=== PATIENT | male | born 1940 | race Caucasian/White ===

== ENCOUNTER → 2016-12-12 | Outpatient (CLI) | payer MEDICARE ==
[~2016-12-12] MED LIST: ALLO100 PO; ALLO100T PO; AMLO5TAB2 PO; ASPI1TAB91 PO; ASPI81 PO; CALC600T10 PO; DIPH2.5T14 PO; LEVO125T3 PO; LEVO137T2 PO; LISI10TA3 PO; MIDO5 PO; OMEP20TA PO; TAMS0.4C4 PO; TAMS0.4C67 PO; VIAG25TA PO; VITA20002 PO; ZOLP5TAB3 PO
== END ==
LOC: CLAB 11:58
PROVIDERS: ATTEND Specialist
DX: B18.2 Chronic viral hepatitis C (principal); D64.9 Anemia, unspecified; I10 Essential (primary) hypertension; N40.1 Benign prostatic hyperplasia with lower urinary tract symptoms; R79.9 Abnormal finding of blood chemistry, unspecified
CPT/HCPCS: 36415; 82140

== ENCOUNTER 2017-02-04 00:05 | Emergency (ER) | payer MEDICARE ==
[~2017-02-04] VITALS: Ht 172.7 cm; Wt 98.7 kg
[~2017-02-04 00:05] MED LIST changes: -ALLO100T PO; -AMLO5TAB2 PO; -ASPI1TAB91 PO; -CALC600T10 PO; -DIPH2.5T14 PO; -LEVO137T2 PO; -LISI10TA3 PO; -TAMS0.4C4 PO; -VIAG25TA PO; -ZOLP5TAB3 PO
[2017-02-04 00:14] VITALS: BP 151/88; PULSE 79; RESP 16; TEMP 98.3; O2SAT 93
[2017-02-04] MEDS ORDERED: VIAG25TA PO (00:53)
[2017-02-04] MEDS ORDERED: DIPH2.5T14 PO (00:53)
[2017-02-04] MEDS ORDERED: CALC600T10 PO (00:53)
[2017-02-04] MEDS ORDERED: ALLO100T PO (00:53)
[2017-02-04] MEDS ORDERED: AMLO5TAB2 PO (00:53)
[2017-02-04] MEDS ORDERED: ZOLP5TAB3 PO (00:53)
[2017-02-04] MEDS ORDERED: LISI10TA3 PO (00:53)
[2017-02-04] MEDS ORDERED: LEVO137T2 PO (00:53)
[2017-02-04] MEDS ORDERED: ASPI1TAB91 PO (00:53)
[2017-02-04] MEDS ORDERED: TAMS0.4C4 PO (00:53)
--- NOTE | 2017-02-04 01:34 | PD ---
HPI Chief Complaint: Fall Time Seen by Provider: 01:31 Travel History International Travel<30 days: No Contact w/Intl Traveler<30days: No Traveled to known affect area: No History of Present Illness HPI The patient is a 76-year-old male that fell at 31 tonight and complains of pain slightly to the right of the sternum. The patient thinks he hit on a shoulder but the force was transmitted to the right of the sternum. He has had a coronary bypass graft. There was no loss of consciousness and the patient denies any shortness of breath or hemoptysis. 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 PFSH Past Medical History Anemia: Yes (WHILE ON INTERFERON) Arthritis: Yes Blood Disorders: No Anxiety: No Depression: No Cancer: No Cardiovascular Problems: Yes High Cholesterol: Yes Chemotherapy: Yes (TX FOR HEPATITIS C) Chest Pain: Yes Congestive Heart Failure: Yes Coronary Artery Disease: Yes Diabetes: No Diminished Hearing: No Endocrine: Yes Gastrointestinal Disorders: Yes (HEP C, STONES IN GALLBLADDER,GERD) GERD: Yes Genitourinary: Yes Hepatitis: Yes ( HEPATITIS C) Hiatal Hernia: No Hypertension: Yes Immune Disorder: No Medical other: Yes (HIGH CHOLESTEROL, CIRRHOSIS,GOUT) Musculoskeletal: Yes (MID BACK DISCOMFORT INTERMITTENTLY) Neurologic: No Psychiatric: No Reproductive: No Respiratory: No Myocardial Infarction: No Thyroid Disease: Yes (RADIOACTIVE IODINE TO DESTROY THYROID) Past Surgical History Abdominal Surgery: Yes (cholecystectomy jul 2014) AICD: No Body Medical Devices: STERNAL WIRES Cardiac Surgery: Yes (CABG X4 2009) Cholecystectomy: Yes Coronary Artery Bypass Graft: Yes (X 4) Ear Surgery: No Endocrine Surgery: No Eye Surgery: No Genitourinary Surgery: Yes (VASECTOMY 1974) Gynecologic Surgery: No Joint Replacement: No Oral Surgery: Yes (WISDOM TEETH REMOVED) Pacemaker: No Thoracic Surgery: No Other Surgery: Yes Social History Alcohol Use: No Tobacco Use: No Substance Use: No Allergies-Medications (Allergen,Severity, Reaction): Coded Allergies: Fish Oil (Verified Allergy, Mild, RASH, 02/04/17) Reported Meds & Prescriptions Reported Meds & Active Scripts Active Reported Aspirin Adult Low Strength (Aspirin) 81 Mg Tabdr 81 Mg PO DAILY Viagra (Sildenafil Citrate) 25 Mg Tab 25 Mg PO DAILY PRN Diphenoxylate-Atropine 2.5-0.025 Mg Tab 1 Tab PO Q6H PRN Zolpidem (Zolpidem Tartrate) 5 Mg Tab 5 Mg PO HS PRN Calcium + D3 (Calcium Carbonate-Cholecalciferol) 600-200 Mg-Unit Tab 1 Tab PO BID Lisinopril 10 Mg Tab 10 Mg PO BID Amlodipine (Amlodipine Besylate) 5 Mg Tab 5 Mg PO DAILY Tamsulosin (Tamsulosin HCl) 0.4 Mg Cap 0.4 Mg PO HS Allopurinol 100 Mg Tab 100 Mg PO DAILY Levothyroxine (Levothyroxine Sodium) 137 Mcg Tab 137 Mcg PO DAILY Review of Systems Except as stated in HPI: all other systems reviewed are Neg Physical Exam Narrative GENERAL: Well-nourished, well-developed patient in slight apparent distress with his right anterior chest wall pain. His vital signs are normal except for blood pressure 131/88. SKIN: Warm and dry. HEAD: Normocephalic. EYES: No scleral icterus. No injection or drainage. NECK: Supple, trachea midline. No JVD or lymphadenopathy. The left parotid gland is extremely hard and enlarged and irregular. CARDIOVASCULAR: Regular rate and rhythm without murmurs, gallops, or rubs. RESPIRATORY: Breath sounds equal bilaterally. No accessory muscle use. Lungs clear to auscultation bilaterally. GASTROINTESTINAL: Abdomen soft, non-tender, nondistended. MUSCULOSKELETAL: No cyanosis, or edema. BACK: Nontender without obvious deformity. No CVA tenderness. Data Data Last Documented VS Vital Signs Date Time Temp Pulse Resp B/P Pulse Ox O2 Delivery O2 Flow Rate FiO2 02/04/17 00:40 Room Air 02/04/17 00:14 98.3 79 16 151/88 93 Orders Chest, Pa & Lat (02/04/17 01:34) [facility] Medical Decision Making Medical Screen Exam Complete: Yes Emergency Medical Condition: Yes Medical Record Reviewed: Yes Interpretation(s) The chest x-ray shows no acute disease. Differential Diagnosis Pneumothorax, fractured ribs, pulmonary contusion, fracture sternum Narrative Course The patient has a history of hepatitis C and does not want anything containing Tylenol. He does not want any pain medications at all. Impression: Chest wall contusion Diagnosis Primary Impression: Chest wall contusion Additional Instructions: Cough and deep breathe. This is all your lungs clean them cells out and if you don't expand her lungs and cough you are a set up for pneumonia. Follow-up with your primary care physician next week. Med/Other Pt SpecificInfo: No Change to Meds Disposition: 01 DISCHARGE HOME Condition: Stable Levi Goetz MD Feb 04, 2017 01:34
--- NOTE | 2017-02-04 02:24 | RADHPO ---
EXAM DATE/TIME: 02/04/2017 02:02 [facility] COMPARISON: No previous studies available for comparison. INDICATIONS : Bilateral chest pain post fall. MEDICAL HISTORY : Congestive heart failure. Heart murmur SURGICAL HISTORY : CABG. ENCOUNTER: Initial ACUITY: 1 day PAIN SCORE: 8/10 LOCATION: Bilateral chest FINDINGS: PA and lateral views of the chest demonstrate the lungs to be symmetrically aerated without evidence of mass, infiltrate or effusion. Elevation of the right hemidiaphragm. The cardiomediastinal contours are unremarkable. Osseous structures are intact. Median sternotomy wires. CONCLUSION: No acute disease. Jimbo Stern Jr., MD on February 04, 2017 at 2:22 Board Certified Radiologist. This report was verified electronically.
[2017-02-04 02:39] VITALS: BP 144/89
== END 2017-02-04 02:48 | disposition home or self-care (01) ==
LOC: PHED 00:05
DX: S20.219A Contusion of unspecified front wall of thorax, initial encounter (principal); W19.XXXA Unspecified fall, initial encounter
CPT/HCPCS: 71020; 99284

== ENCOUNTER 2017-08-25 16:15 | Emergency (ER) | payer MEDICARE ==
[~2017-08-25] VITALS: Ht 175.3 cm; Wt 95.0 kg
[~2017-08-25 16:15] MED LIST changes: -ALLO100 PO; +ALLO100T PO; +AMLO5TAB2 PO; +ASPI1TAB91 PO; -ASPI81 PO; +CALC600T10 PO; +DIPH2.5T14 PO; -LEVO125T3 PO; +LEVO137T2 PO; +LISI10TA3 PO; -MIDO5 PO; -OMEP20TA PO; +TAMS0.4C4 PO; -TAMS0.4C67 PO; +VIAG25TA PO; -VITA20002 PO; +ZOLP5TAB3 PO
[2017-08-25 16:17] VITALS: BP 133/68; PULSE 102; RESP 14; TEMP 100.6; O2SAT 93
[2017-08-25] MEDS ORDERED: CEFEPIME INJ 2,000 MG in SODIUM CHLORIDE 0.9% INJ 100 ML IV STA ×2 (17:10→18:16)
[2017-08-25] MEDS ORDERED: SODIUM CHLOR 0.9% 1000 ML INJ 1,000 ML IV ONE (17:15)
[2017-08-25] MEDS ORDERED: ACETAMINOPHEN 325 MG TAB PO ONE (17:15)
[2017-08-25 17:25] VITALS: BP 138/68; PULSE 93; RESP 16; O2SAT 96
[2017-08-25] MEDS ORDERED: CALC1TAB37 PO (17:38)
--- NOTE | 2017-08-25 17:38 | RADRPT ---
EXAM DATE/TIME: 08/25/2017 17:18 [facility] COMPARISON: CHEST SINGLE AP, August 19, 2014, 5:10. INDICATIONS : Fever. MEDICAL HISTORY : Congestive heart failure. SURGICAL HISTORY : 4 way bypass surgery. ENCOUNTER: Initial ACUITY: 1 day PAIN SCORE: 0/10 LOCATION: Bilateral chest FINDINGS: The cardiac silhouette is normal in transverse diameter. Median sternotomy wires are present. There i s elevation of the right hemidiaphragm. The lungs are free of acute parenchymal opacity. No effusions are identified. CONCLUSION: 1. No acute cardiopulmonary disease. Hakan Chu MD on August 25, 2017 at 17:36 Board Certified Radiologist. This report was verified electronically.
[2017-08-25] MEDS ORDERED: [UNRECOGNIZED DRUG - CODE] (17:42)
[2017-08-25] MEDS ORDERED: PEGF6P SQ (17:42)
[2017-08-25] MEDS ORDERED: RITU500P (17:42)
[2017-08-25 18:00] LABS: AUTOMATED NEUTROPHIL # 4.2 TH/MM3 (1.8-7.7); BASOPHIL % 0.3 % (0.0-2.0); EOSINOPHIL % 0.3 % (0.0-4.0); HEMATOCRIT 36.1 % (39.0-51.0); LYMPH % 6.5 % (9.0-44.0); LYMPHOCYTE # 0.3 TH/MM3 (1.0-4.8); MEAN CELL VOLUME 107.2 FL (80.0-100.0); MEAN CORPUSCULAR HEMOGLOBIN 36.7 PG (27.0-34.0); MEAN CORPUSCULAR HGB CONC 34.3 % (32.0-36.0); MONO % 8.4 % (0.0-8.0); NEUT % 84.5 % (16.0-70.0); PLATELET COUNT 45 TH/MM3 (150-450); RED BLOOD COUNT 3.37 MIL/MM3 (4.50-5.90); RED CELL DISTRIBUTION WIDTH 15.5 % (11.6-17.2)
[2017-08-25 18:10] LABS: APTT (PATIENT) 28.7 SEC (24.3-30.1); HEMO FLAGS AUTO DIFF
[2017-08-25 18:14] LABS: ANION GAP 6 MEQ/L (5-15); AST (GOT) 41 U/L (15-37); BLOOD UREA NITROGEN 19 MG/DL (7-18); CHLORIDE 105 MEQ/L (98-107); GLOMERULAR FILTRATION RATE 46 ML/MIN (>89); POTASSIUM 4.1 MEQ/L (3.5-5.1); SODIUM (NA) 138 MEQ/L (136-145)
[2017-08-25 18:15] LABS: ALT (GPT) 22 U/L (12-78)
[2017-08-25 18:17] LABS: ALKALINE PHOSPHATASE 149 U/L (45-117)
--- NOTE | 2017-08-25 18:24 | PD ---
HPI Chief Complaint: Abnormal Results Time Seen by Provider: 17:01 Travel History International Travel<30 days: No Contact w/Intl Traveler<30days: No Traveled to known affect area: No History of Present Illness HPI and is a 76-year-old male with history of non-Hodgkin's lymphoma on chemotherapy, who comes in complaining of a fever. He says he had a chemotherapy treatment yesterday and today and developed fever of 101.7 at home. He denies any symptoms. He says he has had some chills, but no other symptoms. He denies chest pain or shortness of breath. He denies cough or cold. He denies nausea or vomiting or abdominal pain. He says this is never happened before. He completed his last chemotherapy treatment today and is going on maintenance therapy. He says he does think that his cell counts are low. PFSH Past Medical History Anemia: Yes (WHILE ON INTERFERON) Arthritis: Yes Blood Disorders: No Anxiety: No Depression: No Cancer: No Cardiovascular Problems: Yes High Cholesterol: Yes Chemotherapy: Yes Chest Pain: Yes Congestive Heart Failure: Yes Coronary Artery Disease: Yes Diabetes: No Diminished Hearing: No Endocrine: Yes Gastrointestinal Disorders: Yes (HEP C, STONES IN GALLBLADDER,GERD) GERD: Yes Genitourinary: Yes Hepatitis: Yes ( HEPATITIS C) Hiatal Hernia: No Hypertension: Yes Immune Disorder: No Musculoskeletal: Yes (MID BACK DISCOMFORT INTERMITTENTLY) Neurologic: No Psychiatric: No Reproductive: No Respiratory: No Myocardial Infarction: No Thyroid Disease: Yes (RADIOACTIVE IODINE TO DESTROY THYROID) Past Surgical History Abdominal Surgery: Yes (cholecystectomy jul 2014) AICD: No Body Medical Devices: STERNAL WIRES Cardiac Surgery: Yes (CABG X4 2009) Cholecystectomy: Yes Coronary Artery Bypass Graft: Yes (X 4) Ear Surgery: No Endocrine Surgery: No Eye Surgery: No Genitourinary Surgery: Yes (VASECTOMY 1974) Gynecologic Surgery: No Joint Replacement: No Oral Surgery: Yes (WISDOM TEETH REMOVED) Pacemaker: No Thoracic Surgery: No Other Surgery: Yes Social History Alcohol Use: No Tobacco Use: No Substance Use: No Allergies-Medications (Allergen,Severity, Reaction): Coded Allergies: fish oil (Unverified Allergy, Mild, RASH, 06/27/17) Reported Meds & Prescriptions Reported Meds & Active Scripts Active Levaquin (Levofloxacin) 750 Mg Tablet 750 Mg PO DAILY 7 Days Reported Rituxan Inj (Rituximab) 10 Mg/Ml Inj DIRECTED Chemo Medication Bendeka Inj (Bendamustine HCl) 25 Mg/Ml Inj DIRECTED Chemo Medication Neulasta Inj (Pegfilgrastim) 6 Mg/0.6 Ml Inj 6 Mg SQ Q7D Chemo Medication Calcium 600+D (Calcium Carbonate-Cholecalciferol) 600-800 Mg-Unit Tab 1 Tab PO BID Aspirin Adult Low Strength (Aspirin) 81 Mg Tabdr 81 Mg PO MOWEFR Take 1 tablet (81mg) daily on Monday,Monday and Monday Viagra (Sildenafil Citrate) 25 Mg Tab 25 Mg PO DAILY PRN Diphenoxylate-Atropine 2.5-0.025 Mg Tab 1 Tab PO Q6H PRN Zolpidem (Zolpidem Tartrate) 5 Mg Tab 5 Mg PO HS PRN Lisinopril 10 Mg Tab 10 Mg PO BID Amlodipine (Amlodipine Besylate) 5 Mg Tab 5 Mg PO DAILY Tamsulosin (Tamsulosin HCl) 0.4 Mg Cap 0.4 Mg PO DAILY Allopurinol 100 Mg Tab 100 Mg PO BID Levothyroxine (Levothyroxine Sodium) 137 Mcg Tab 137 Mcg PO DAILY Review of Systems Except as stated in HPI: all other systems reviewed are Neg General / Constitutional: Positive: Fever, Chills HENT: No: Headaches, Lightheadedness Cardiovascular: No: Chest Pain or Discomfort Respiratory: No: Cough, Shortness of Breath Gastrointestinal: No: Nausea, Vomiting, Abdominal Pain Genitourinary: No: Dysuria Musculoskeletal: No: Myalgias, Edema Skin: No Rash, No Change in Pigmentation Neurologic: No: Weakness, Dizziness Physical Exam Narrative GENERAL: Awake and alert, in no acute distress. SKIN: Focused skin assessment warm/dry. HEAD: Atraumatic. Normocephalic. EYES: Pupils equal and round. No scleral icterus. ENT: Mucous membranes pink and moist. NECK: Trachea midline. No JVD. CARDIOVASCULAR: Regular rate and rhythm. No murmur appreciated. RESPIRATORY: No accessory muscle use. Clear to auscultation. Breath sounds equal bilaterally. GASTROINTESTINAL: Abdomen soft, non-tender, nondistended. MUSCULOSKELETAL: No obvious deformities. No clubbing. No cyanosis. No edema. NEUROLOGICAL: Awake and alert. No obvious cranial nerve deficits. Motor grossly within normal limits. Normal speech. PSYCHIATRIC: Appropriate mood and affect; insight and judgment normal. Data Data Last Documented VS Vital Signs Date Time Temp Pulse Resp B/P (MAP) Pulse Ox O2 Delivery O2 Flow Rate FiO2 08/25/17 19:26 90 18 134/74 (94) 99 08/25/17 17:25 Room Air 08/25/17 16:17 100.6 Orders Orders Complete Blood Count With Diff (08/25/17 17:10) Comprehensive Metabolic Panel (08/25/17 17:10) Prothrombin Time / Inr (Pt) (08/25/17 17:10) Act Partial Throm Time (Ptt) (08/25/17 17:10) Lactic Acid Sepsis Protocol (08/25/17 17:10) Urinalysis - C+S If Indicated (08/25/17 17:10) Blood Culture (08/25/17 17:10) Chest, Single Ap (08/25/17 17:10) Blood Glucose (08/25/17 17:10) Ecg Monitoring (08/25/17 17:10) Iv Access Insert/Monitor (08/25/17 17:10) Oximetry (08/25/17 17:10) Oxygen Administration (08/25/17 17:10) Acetaminophen (Tylenol) (08/25/17 17:15) Cefepime Inj (Maxipime Inj) (08/25/17 17:10) Sodium Chlor 0.9% 1000 Ml Inj (Ns 1000 M (08/25/17 17:15) Influenzae A/B Antigen (08/25/17 18:15) Cefepime Inj (Maxipime Inj) (08/25/17 18:16) Ketorolac Inj (Toradol Inj) (08/25/17 19:00) Ed Discharge Order (08/25/17 19:57) Labs Laboratory Tests Test 08/25/17 17:15 08/25/17 18:25 White Blood Count 5.0 TH/MM3 Red Blood Count 3.37 MIL/MM3 Hemoglobin 12.4 GM/DL Hematocrit 36.1 % Mean Corpuscular Volume 107.2 FL Mean Corpuscular Hemoglobin 36.7 PG Mean Corpuscular Hemoglobin Concent 34.3 % Red Cell Distribution Width 15.5 % Platelet Count 45 TH/MM3 Mean Platelet Volume 8.5 FL Neutrophils (%) (Auto) 84.5 % Lymphocytes (%) (Auto) 6.5 % Monocytes (%) (Auto) 8.4 % Eosinophils (%) (Auto) 0.3 % Basophils (%) (Auto) 0.3 % Neutrophils # (Auto) 4.2 TH/MM3 Lymphocytes # (Auto) 0.3 TH/MM3 Monocytes # (Auto) 0.4 TH/MM3 Eosinophils # (Auto) 0.0 TH/MM3 Basophils # (Auto) 0.0 TH/MM3 CBC Comment AUTO DIFF Differential Comment AUTO DIFF CONFIRMED Platelet Estimate LOW Platelet Morphology Comment NORMAL Prothrombin Time 11.0 SEC Prothromb Time International Ratio 1.0 RATIO Activated Partial Thromboplast Time 28.7 SEC Blood Urea Nitrogen 19 MG/DL Creatinine 1.49 MG/DL Random Glucose 126 MG/DL Total Protein 6.7 GM/DL Albumin 3.2 GM/DL Calcium Level 9.3 MG/DL Alkaline Phosphatase 149 U/L Aspartate Amino Transf (AST/SGOT) 41 U/L Alanine Aminotransferase (ALT/SGPT) 22 U/L Total Bilirubin 1.0 MG/DL Sodium Level 138 MEQ/L Potassium Level 4.1 MEQ/L Chloride Level 105 MEQ/L Carbon Dioxide Level 27.0 MEQ/L Anion Gap 6 MEQ/L Estimat Glomerular Filtration Rate 46 ML/MIN Lactic Acid Level 1.8 mmol/L Urine Color YELLOW Urine Turbidity CLEAR Urine pH 5.5 Urine Specific [place] 1.018 Urine Protein 30 mg/dL Urine Glucose (UA) NEG mg/dL Urine Ketones NEG mg/dL Urine Occult Blood NEG Urine Nitrite NEG Urine Bilirubin NEG Urine Urobilinogen LESS THAN 2.0 MG/DL Urine Leukocyte Esterase NEG Urine RBC LESS THAN 1 /hpf Urine WBC LESS THAN 1 /hpf Microscopic Urinalysis Comment CATH-CULT NOT IND MDM Medical Decision Making Medical Screen Exam Complete: Yes Emergency Medical Condition: Yes Medical Record Reviewed: Yes Differential Diagnosis Sepsis versus neutropenia versus influenza versus pneumonia versus UTI Narrative Course Patient is a 76-year-old male who comes in complaining of fever. He finished chemotherapy today. Exam shows no acute abnormalities. IV established, labs sent. Labs show a white blood cell count of 5000. Neutrophil count is 4200. Chest x-ray performed shows no acute abnormalities. Patient was given IV fluids and Toradol. Urinalysis is negative for infection. Flu swab is negative. Patient is feeling well. He was given a dose of cefepime here. Patient fact that patient is having normal counts, I believe it is safe for him to try going home. He is discharged with a prescription for Levaquin. Given strict return precautions. Advised to return at any time for any worsening symptoms. Advised to follow-up with his oncologist. Given a prescription for Levaquin. I spoke with oncology at [facility] who agreed patient could go home, but would need to return if he developed further fever in the coming days due to continued neutropenic risk. Diagnosis Primary Impression: Fever and chills Patient Instructions: Fever in Adults (ED), General Instructions Additional Instructions: Follow up with your oncologist. Take all of the antibiotic. Return to the ED if you have any worsening symptoms. Scripts Levofloxacin (Levaquin) 750 Mg Tablet 750 MG PO DAILY for Infection for 7 Days, #7 TAB 0 Refills Prov: Roro Damon MD 08/25/17 Disposition: 01 DISCHARGE HOME Condition: Stable Roro Damon MD Aug 25, 2017 18:24
[2017-08-25] MEDS ORDERED: KETOROLAC TROMETHAMINE 30 MG/ML (IVP) VIAL IV PUSH ONE (19:00)
[2017-08-25 19:06] LABS: PLATELET ESTIMATE SMEAR LOW (NORMAL); PLATELET MORPHOLOGY NORMAL (NORMAL); SCAN/DIFF AUTO DIFF CONFIRMED
[2017-08-25 19:25] LABS: BLOOD, URINE NEG (NEG); GLUCOSE,URINE NEG (NEG); KETONE, URINE NEG (NEG); NITRITE,URINE NEG (NEG); PH, URINE 5.5 (5.0-8.5); URINE COLOR YELLOW (YELLW/STRAW)
[2017-08-25 19:26] VITALS: BP 134/74; PULSE 90; RESP 18; O2SAT 99
[2017-08-25 19:33] LABS: COMMENT (UR) CATH-CULT NOT IND; CULTURE IF INDICATED CATH CULTURE NOT IND
[2017-08-25] MEDS ORDERED: LEVA750T9 PO (19:43)
== END 2017-08-25 20:23 | disposition home or self-care (01) ==
LOC: NEPC 16:15
DX: R50.9 Fever, unspecified (principal); C85.90 Non-Hodgkin lymphoma, unspecified, unspecified site; Z79.899 Other long term (current) drug therapy; E78.5 Hyperlipidemia, unspecified; I25.10 Atherosclerotic heart disease of native coronary artery without angina pectoris; K21.9 Gastro-esophageal reflux disease without esophagitis; I11.0 Hypertensive heart disease with heart failure; I50.9 Heart failure, unspecified
CPT/HCPCS: 71010; 80053; 81001; 83605; 85025; 85610; 85730; 87040; 87804; 96365; 99284; J0692; J7030